=== PATIENT | female | born 1990 | race Caucasian/White ===

== ENCOUNTER 2016-11-22 13:17 | Emergency (ER) | payer OTHER ==
[~2016-11-22] VITALS: Ht 157.5 cm; Wt 65.9 kg
[2016-11-22] MEDS ORDERED: [UNRECOGNIZED DRUG - OTHER] PO (13:41)
[2016-11-22 14:55] VITALS: BP 120/74
== END 2016-11-22 15:53 | disposition home or self-care (01) ==
LOC: EMS 13:19
DX: R42 Dizziness and giddiness (principal)
CPT/HCPCS: 93005; 99283